=== PATIENT | male | born 1975 | race African-American/Black ===

== ENCOUNTER 2018-10-31 10:48 | Emergency (ER) | payer MEDICARE, MEDICAID ==
[2018-10-31] MEDS ORDERED: CLINDAMYCIN HCL 150 MG CAPSULE PO ONE (11:14)
[2018-10-31] MEDS ORDERED: HYDROCODONE/ACETAMINOPHEN 5-325 MG TABLET PO ONE (11:14)
--- NOTE | 2018-10-31 11:52 | RADIOLOGY REPORT (SQ) ---
EXAM DESCRIPTION: FINGER LEFT COMPLETED DATE/TIME: 10/31/2018 11:40 am REASON FOR STUDY: fall, L thumb injury COMPARISON: None. NUMBER OF VIEWS: Three views. TECHNIQUE: AP, lateral, and oblique images acquired of the left thumb. LIMITATIONS: None. FINDINGS: MINERALIZATION: Normal. BONES: Comminuted acute fracture base left thumb proximal phalanx with extension of fracture lines in to the 1st MCP joint. Mild dorsal angulation at the fracture site. SOFT TISSUES: No soft tissue swelling. No foreign body. OTHER: No other significant finding. IMPRESSION: Comminuted acute fracture base left thumb proximal phalanx, with intra-articular extensi on of fracture lines into the 1st metacarpophalangeal joint TECHNICAL DOCUMENTATION: JOB ID: [id number] [email or web address]- All Rights Reserved Reading location - IP/workstation name: [email or web address]
--- NOTE | 2018-10-31 11:53 | RADIOLOGY REPORT (SQ) ---
EXAM DESCRIPTION: HIP RIGHT AP/LATERAL COMPLETED DATE/TIME: 10/31/2018 11:40 am REASON FOR STUDY: fall, r hip pain COMPARISON: None. NUMBER OF VIEWS: Two views. TECHNIQUE: AP pelvis and additional frog-leg view of the right hip. LIMITATIONS: None. FINDINGS: MINERALIZATION: Normal. RIGHT HIP: No fracture or dislocation. No worrisome bone lesions. LEFT HIP: No fracture or dislocation. No worrisome bone lesions. PUBIS AND ISCHIUM: No fracture. PELVIS: No fracture. SACRUM: No fracture or dislocation. No worrisome bone lesions. LOWER LUMBAR SPINE: No fracture or dislocation. No worrisome bone lesions. No significant disc disea se. SOFT TISSUES: No findings. OTHER: No other significant finding. IMPRESSION: NEGATIVE STUDY OF THE RIGHT HIP. NO RADIOGRAPHIC EVIDENCE OF ACUTE INJURY. TECHNICAL DOCUMENTATION: JOB ID: [id number] [employer]- All Rights Reserved Reading location - IP/workstation name: [email or web address]
--- NOTE | 2018-10-31 12:12 | ER Document Report ---
HPI - HPI Patient complains to provider of: fall Time Seen by Provider: 10/31/18 11:05 Onset: Yesterday Onset/Duration: Sudden Quality of pain: Achy Pain Level: 3 Context: Patient states that he fell stepping down out of a camper yesterday onto his left hand. Patient complains of right hip pain as well. Patient denies any head injury or loss of consciousness. Recent with left thumb pain and swelling Associated Symptoms: Other - Right hip, left thumb pain. denies: Fever, Headache Exacerbated by: Movement, Walking Relieved by: Denies Similar symptoms previously: No Recently seen / treated by doctor: No - ROS ROS below otherwise negative: Yes Systems Reviewed and Negative: Yes All other systems reviewed and negative - CONSTITUTIONAL Constitutional: DENIES: Fever - NEURO Neurology: DENIES: Weakness - RESPIRATORY Respiratory: DENIES: Trouble Breathing, Coughing - GASTROINTESTINAL Gastrointestinal: DENIES: Nausea, Patient vomiting - MUSCULOSKELETAL Musculoskeletal: REPORTS: Extremity pain - left thumb, right hip. DENIES: Back Pain, Neck Pain - DERM Skin Color: Erythema Skin Problems: None Past Medical History - General Information source: Patient - Social History Smoking Status: Current Every Day Smoker Frequency of alcohol use: None Drug Abuse: None Lives with: Friend Family History: Reviewed & Not Pertinent Patient has suicidal ideation: No Patient has homicidal ideation: No Renal/ Medical History: Denies: Hx Peritoneal Dialysis Infectious Medical History: Reports: Hx HIV Surgical Hx: Negative - Immunizations Hx Diphtheria, Pertussis, Tetanus Vaccination: Yes Vertical Provider Document - CONSTITUTIONAL Agree With Documented VS: Yes Exam Limitations: No Limitations General Appearance: WD/WN, No Apparent Distress - INFECTION CONTROL TRAVEL OUTSIDE OF THE [place] IN LAST 30 DAYS: No - HEENT HEENT: Atraumatic, Normocephalic - NECK Neck: Normal Inspection, Supple - RESPIRATORY Respiratory: Breath Sounds Normal, No Respiratory Distress - CARDIOVASCULAR Cardiovascular: Regular Rate, Regular Rhythm - BACK Back: Normal Inspection Notes: No spinal midline tenderness step-off or deformity - MUSCULOSKELETAL/EXTREMETIES Musculoskeletal/Extremeties: MAEW Notes: Patient with right lateral hip joint tenderness, no dislocation or deformity. Normal gait. Patient with left thumb tenderness to CMC joint and DIP joint, 2+ edema to thenar eminence, mild erythema overlying joint with small abrasions noted to hand. - NEURO Level of Consciousness: Awake, Alert, Appropriate Motor/Sensory: No Motor Deficit - DERM Integumentary: Warm, Dry Course - Re-evaluation Re-evalutation: 10/31/18 12:10 Pt with subtle erythema noted to hand, will cover in case of developing cellulitis in addition to acute fracture noted to left thumb. Erythema likely a result of ecchymosis to acute fracture. Good return precautions discussed. - Vital Signs Vital signs: Temp Pulse Resp BP Pulse Ox 98.5 F 84 18 148/97 H 98 10/31/18 10:53 10/31/18 10:53 10/31/18 10:53 10/31/18 10:53 10/31/18 10:53 - Diagnostic Test Radiology reviewed: Image reviewed, Reports reviewed Procedures - Immobilization Left Thumb Pre-Proc Neuro Vasc Exam: Normal Immobilizer type: Thumb spica Performed by: PCT Post-Proc Neuro Vasc Exam: Normal Alignment checked and good: Yes Discharge - Discharge Clinical Impression: Abrasion Fracture of thumb, left, closed Qualifiers: Encounter type: initial encounter Phalanx: unspecified phalanx Fracture alignment: displaced Qualified Code(s): S62.502A - Fracture of unspecified phalanx of left thumb, initial encounter for closed fracture Sprain of right hip Qualifiers: Encounter type: initial encounter Qualified Code(s): S73.101A - Unspecified sprain of right hip, initial encounter Condition: Stable Disposition: HOME, SELF-CARE Instructions: Clindamycin ([facility]), Oral Narcotic Medication ([facility]), Splint Precautions ([facility]), Sprain ([facility]), Fractured Thumb ([facility]) Additional Instructions: Return immediately for any new or worsening symptoms Followup with your primary care provider, call tomorrow to make a followup appointment Follow-up with orthopedics for further evaluation, call today to make an appointment. Prescriptions: Clindamycin HCl [Cleocin Hcl] 300 mg PO QID #28 capsule Hydrocodone/Acetaminophen [Burket 5-325 mg Tablet] 1 tab PO Q6 PRN #15 tablet PRN Reason: Forms: Smoking Cessation Education Referrals: FELIBERTO DAVALOS DO [ACTIVE STAFF] - 11/03/18
[2018-10-31 12:52] VITALS: BP 139/92
== END 2018-10-31 12:52 | disposition home or self-care (01) ==
LOC: ER 10:48
PROC: 2W3HX1Z Immobilization of Left Thumb using Splint (ICD-10-PCS; principal; 2018-10-31)
DX: S62.502A Fracture of unspecified phalanx of left thumb, initial encounter for closed fracture (principal); S73.101A Unspecified sprain of right hip, initial encounter; M25.551 Pain in right hip; M79.645 Pain in left finger(s); W17.89XA Other fall from one level to another, initial encounter; F17.200 Nicotine dependence, unspecified, uncomplicated
CPT/HCPCS: 99283; 73140; 73502; 29130; A9270 ×2

== ENCOUNTER 2018-11-10 05:35 | Day surgery (SDC) | payer MEDICARE, MEDICAID ==
[2018-11-10] MEDS ORDERED: PROPOFOL INJ 200 MG/20 ML VIAL IV ONE (06:15)
[2018-11-10] MEDS ORDERED: FENTANYL CITRATE INJ/PF 100 MCG/2 ML AMPUL ONE (06:15)
[2018-11-10] MEDS ORDERED: MIDAZOLAM 2 MG/2 ML INJ ONE (06:15)
[2018-11-10] MEDS ORDERED: ONDANSETRON HCL INJ/PF 4 MG/2 ML SDV ONE (06:15)
[2018-11-10] MEDS ORDERED: DEXAMETHASONE SOD PHOSPHATE INJ 4 MG/1 ML VIAL ONE (06:15)
[2018-11-10] MEDS ORDERED: LIDOCAINE 0.5% INJ-PF (5 MG/ML) 50 ML SDV ONE (06:16)
[2018-11-10 06:29] LABS: HEMATOCRIT 43.3 % (37.9-51.0); HEMOGLOBIN 14.9 g/dL (13.5-17.0); MEAN CORPUSCULAR HEMOGLOBIN 30.1 pg (27.0-33.4); MEAN CORPUSCULAR HGB CONC 34.3 g/dL (32.0-36.0); MEAN CORPUSCULAR VOLUME 88 fl (80-97); PLATELET COUNT 247 10^3/uL (150-450); RED BLOOD COUNT 4.93 10^6/uL (4.35-5.55); RED CELL DISTRIBUTION WIDTH 15.3 % (11.5-14.0); WHITE BLOOD COUNT 4.1 10^3/uL (4.0-10.5)
[2018-11-10 06:40] LABS: ANION GAP 9 (5-19); BLOOD UREA NITROGEN 10 mg/dL (7-20); CALCIUM 9.3 mg/dL (8.4-10.2); CARBON DIOXIDE 27 mmol/L (22-30); CHLORIDE 102 mmol/L (98-107); GLUCOSE 79 mg/dL (75-110); SODIUM 138.3 mmol/L (137-145)
[2018-11-10] MEDS ORDERED: CEFAZOLIN 2 GM/D5W RTU 2 GM/50 ML RTUPB IV ONE (06:46)
--- NOTE | 2018-11-10 07:25 | RADIOLOGY REPORT (SQ) ---
EXAM DESCRIPTION: XR CHEST 1 VIEW COMPLETED DATE/TME: 11/10/2018 00:00 CLINICAL HISTORY: 43 years Male, surgery COMPARISON: None. NUMBER OF VIEWS/TECHNIQUE: 1/AP FINDINGS: Increased lung volume, clear parenchyma, normal cardiac silhouette, and intact bony thorax. IMPRESSION: No acute cardiopulmonary findings.
[2018-11-10] MEDS ORDERED: ONDANSETRON HCL INJ/PF 4 MG/2 ML SDV IV PRN ×2 (07:39→08:05)
[2018-11-10] MEDS ORDERED: FENTANYL CITRATE INJ/PF 100 MCG/2 ML AMPUL IV PRN ×3 (07:39)
[2018-11-10] MEDS ORDERED: MORPHINE SULFATE 10 MG/ML INJ IV PRN ×2 (07:39→08:05)
[2018-11-10] MEDS ORDERED: PROMETHAZINE HCL INJ 25 MG/1 ML VIAL IV PRN ×2 (07:39)
[2018-11-10] MEDS ORDERED: DIPHENHYDRAMINE HCL 50 MG/ML VIAL IV PRN (07:39)
[2018-11-10] MEDS ORDERED: MEPERIDINE HCL/PF INJ 25 MG/1 ML DISP.SYRIN IV PRN (07:39)
[2018-11-10] MEDS ORDERED: BUPIVACAINE HCL 0.5 % INJ/PF 30 ML SDV ONE (07:46)
[2018-11-10] MEDS ORDERED: OXYCODONE-ACETAMINOPHEN 5-325 MG TABLET PO PRN (08:05)
--- NOTE | 2018-11-10 08:10 | Operative Report ---
Operative Report DATE OF SURGERY: 11/10/18 PREOPERATIVE DIAGNOSIS: Left thumb intra-articular proximal phalanx fracture POSTOPERATIVE DIAGNOSIS: Same OPERATION: Closed reduction percutaneous pinning left thumb intra-articular proximal phalanx fracture. SURGEON: FELIBERTO DAVALOS ANESTHESIA: GA COMPLICATIONS: None ESTIMATED BLOOD LOSS: minimal PROCEDURE: Indication for above procedure: 43-year-old male who sustained a fall onto his left thumb. Patient was seen in the emergency room x-rays demonstrate intra-articular thumb proximal phalanx fr acture. Original alignment was within acceptable position however upon follow- up patient was placed in a cast and x-rays demonstrate displacement of the intra-articular fragment at that point decision was made to proceed with operative intervention. Procedure In Detail: Patient was seen and evaluated in the preoperative holding area. The LEFT upper extremity was initialized and marked. Patient received 2g of Ancef IV for bacterial prophylaxis. Patient was taken back to the operative room where transferred to the operative table and placed under general anesthesia. Once they were adequately anesthetized a nonsterile tourniquet was placed on the upper extremity. A surgical team debriefing was performed ensuring all instrumentation was available, the surgical procedure was discussed with possible concerns reviewed. The upper extremity was prepped with chlorhexidine and alcohol and draped in a sterile fashion. A timeout was done identifying correct patient, procedure and extremity everyone in attendance agree with this and verbalized no concerns. The extremity was exsanguinated the tourniquet was inflated to 250 mmHg. With a 0.062 K wire osteoclasis was performed and the dorsal radial intra- articular fragment was reduced. A 0.035 K wire was then placed crossing the fracture site obtaining fixation into the far cortex. This K wire was then cut in half in the office and placed once again to the articular fragment obtaining further fixation. Lastly a third and final 0.035 K wire was placed obtaining further fixation into the fragment. Under C-arm fluoroscopy fragment remained reduced. With flexion extension and ulnar deviation there is no evidence of fracture or instability. K wires were then cut and left outside the skin. 20 cc of 0.5% bupivacaine without epinephrine was injected for postoperative pain control. Tourniquet was deflated. Patient good peripheral perfusion. Patient was placed in a thumb spica splint. Sponge counts, instrument counts, needle counts were correct. Patient was then awoken from anesthesia. Transferred from the operating room table to the operating room stretcher. There was no intraoperative complications patient tolerated procedure well stable to PACU. Postop plan: Patient follow-up the office in 2 weeks at which point we will obtain radiographs and transition to a thumb spica cast.
--- NOTE | 2018-11-10 08:12 | Discharge Summary ---
Discharge Summary (SDC) - Discharge Final Diagnosis: Left thumb phalanx fracture Date of Surgery: 11/10/18 Discharge Date: 11/10/18 Condition: Good Treatment or Instructions: Schedule Follow Up w/ Dr. Devyn Mosley @ [facility] for Surgery to be seen in 10-14 days or as scheduled [place]: [place]: [place]: Ice and elevate Keep splint clean/dry/intact, do not remove. If your fingers become numb please unwrap the Anil wrap but leave the splint in place, if the sensation does not return within 30 minutes please return to the emergency department. May begin finger range of motion attempting to make full fist. Please use ibuprofen (Motrin or Advil) 600-800 mg every 8 hours as needed for pain or fever DO NOT TAKE w/ TORADOL may use once TORADOL complete. You may also use acetaminophen (Tylenol) 1000 mg every 4-6 hours as needed for pain or fever. Please be aware that many medications contain acetaminophen, do not exceed a total of 1000 mg of acetaminophen every 6 hours. If ibuprofen and acetaminophen are not sufficient for your pain you may take the Percocet/[place]. Please be aware that the Percocet/[place] does contain Tylenol. Stool softener of choice when on pain medication. USE OF [id number] IBUPROFEN: Ibuprofen (Advil, Nuprin, Medipren, Motrin IB) is a medication for fever and pain control. In addition, it has anti- inflammatory effects which may be beneficial, especially in the treatment of injuries. It's best to take ibuprofen with food. Persons with ulcer disease or allergy to aspirin should notify their physician of this before taking ibuprofen. Ibuprofen can be given every four to six hours, for a total of four doses daily. Age Pain or fever dose Antiinflammatory dose 6-8 yr 200 mg (1 tab) 200 mg (1 tab) 9-11 yr 200 mg (1 tab) 200-400 mg (1-2 tab) 11-14 yr 200-400 mg (1-2 tab) 400 mg (2 tab) 15-adult 400 mg (2 tab) 600 mg (3 tab) ORAL NARCOTIC MEDICATION: You have been given a prescription for pain control. This medication is a narcotic. It's best taken with food, as nausea can result if taken on an empty stomach. Don't operate machinery or drive within six hours of taking this medication. Do not combine this medicine with alcohol, or with any medication which can cause sedation (such as cold tablets or sleeping pills) unless you get permission from the physician. Narcotics tend to cause constipation. If possible, drink plenty of fluids and eat a diet high in fiber and fruits. Please be aware that prescription narcotics also have the potential for abuse. People become addicted to these medications because of the general sense of wellbeing that they induce. This feeling along with a significant reduction in tension, anxiety, and aggression provides a stimulating seductive quality to these drugs. Once your pain is under control, we encourage you to discard your unused narcotics. Prescriptions: Oxycodone HCl/Acetaminophen [Percocet 5-325 mg Tablet] 1 tab PO Q6 #25 tab Discharge Diet: As Tolerated Respiratory Treatments at Home: Deep Breathing/Coughing Discharge Activity: No Lifting Over 10 Pounds, No Lifting/Push/Pulling Report the Following to Your Physician Immediately: Fever over 101 Degrees, Unusual Bleeding, Redness, Swelling, Warmth, Increased Soreness
--- NOTE | 2018-11-10 08:47 | EKG REPORT ---
SEVERITY:- ABNORMAL ECG - SINUS RHYTHM PROBABLE LEFT ATRIAL ABNORMALITY LEFT VENTRICULAR HYPERTROPHY ST ELEV, PROBABLE NORMAL EARLY REPOL PATTERN : Confirmed by: Vikash Powell 10-Nov-2018 08:46:40
[2018-11-10] MEDS ORDERED: OXYCODONE-ACETAMINOPHEN 5-325 MG TABLET ONE (09:00)
[2018-11-10 10:27] VITALS: BP 144/94
--- NOTE | 2018-11-10 11:36 | RADIOLOGY REPORT (SQ) ---
EXAM DESCRIPTION: NO CHG FLUORO; FINGER LEFT COMPLETED DATE/TIME: 11/10/2018 8:50 am REASON FOR STUDY: PERC PINNING LEFT THUMB ASST WITH FLUORO IN OR; CLOSED REDUCTION /PERC PINNING LEF T THUMB ASST WITH FLUORO IN OR S62.502A FRACTURE OF UNSP PHALANX OF LEFT THUMB, INIT FOR CL COMPARISON: None. FLUOROSCOPY TIME: 34 seconds 4 images saved to PACS. TECHNIQUE: Intra-operative images acquired during surgical procedure to evaluate progress. NUMBER OF IMAGES: 4 LIMITATIONS: None. FINDINGS: Orthopedic pin fixation of fracture base of proximal 1st phalanx. Alignment is anatomic. IMPRESSION: IMAGE(S) OBTAINED DURING PROCEDURE. COMMENT: Quality ID [id number]: Final reports for procedures using fluoroscopy that document radiation exp osure indices, or exposure time and number of fluorographic images (if radiation exposure indices are not available) Please consult full operative report of the attending physician for description of the procedure. TECHNICAL DOCUMENTATION: JOB ID: [id number] [employer]- All Rights Reserved Reading location - IP/workstation name: [email or web address]
--- NOTE | 2018-11-10 11:36 | RADIOLOGY REPORT (SQ) ---
EXAM DESCRIPTION: NO CHG FLUORO; FINGER LEFT COMPLETED DATE/TIME: 11/10/2018 8:50 am REASON FOR STUDY: PERC PINNING LEFT THUMB ASST WITH FLUORO IN OR; CLOSED REDUCTION /PERC PINNING LEF T THUMB ASST WITH FLUORO IN OR S62.502A FRACTURE OF UNSP PHALANX OF LEFT THUMB, INIT FOR CL COMPARISON: None. FLUOROSCOPY TIME: 34 seconds 4 images saved to PACS. TECHNIQUE: Intra-operative images acquired during surgical procedure to evaluate progress. NUMBER OF IMAGES: 4 LIMITATIONS: None. FINDINGS: Orthopedic pin fixation of fracture base of proximal 1st phalanx. Alignment is anatomic. IMPRESSION: IMAGE(S) OBTAINED DURING PROCEDURE. COMMENT: Quality ID [id number]: Final reports for procedures using fluoroscopy that document radiation exp osure indices, or exposure time and number of fluorographic images (if radiation exposure indices are not available) Please consult full operative report of the attending physician for description of the procedure. TECHNICAL DOCUMENTATION: JOB ID: [id number] [employer]- All Rights Reserved Reading location - IP/workstation name: [email or web address]
== END 2018-11-10 09:50 | disposition home or self-care (01) ==
LOC: OROUT 05:35
PROVIDERS: ATTEND Orthopaedic Surgery
DX: S62.512A Displaced fracture of proximal phalanx of left thumb, initial encounter for closed fracture (principal); W19.XXXA Unspecified fall, initial encounter; I10 Essential (primary) hypertension; Z21 Asymptomatic human immunodeficiency virus [HIV] infection status; Z79.899 Other long term (current) drug therapy; E07.9 Disorder of thyroid, unspecified
CPT/HCPCS: 36415; 85027; 80048; 71045; 73140; 93005; 93010; 26727; C1713 ×2; J2250; J3490 ×2; J1100; J3010; A9270; J2405; J2704; J0690; 01820

== ENCOUNTER 2019-05-12 21:42 | Emergency (ER) | payer MEDICARE, MEDICAID ==
[2019-05-12 22:00] VITALS: BP 150/104
[2019-05-12] MEDS ORDERED: DIPH/PERTUSS(ACELL)/TETANUS VAC/PF 0.5 ML SYR (>=10YO) IM ONE (22:07)
--- NOTE | 2019-05-12 22:09 | ER Document Report ---
ED Medical Screen (RME) - General Chief Complaint: Dog Bite Stated Complaint: DOG BITE Time Seen by Provider: 05/12/19 22:01 Mode of Arrival: Ambulatory Information source: Patient Notes: Patient presents to the emergency department with dog bite to the left side of his face. Patient reports he was walking back from the store when a pit bull attacked him. Unsure when last tetanus is. Patient has history of high blood pressure and is HIV positive. Reports he was allergic to penicillin when he was younger but not allergic now. Patient complains of pain to his left ear left side of his face. Multiple bite san noted. No active bleeding dried blood noted. Patient reports the dog did have a collar on. Animal control has not been notified. I have greeted and performed a rapid initial assessment of this patient. A comprehensive ED assessment and evaluation of the patient, analysis of test results and completion of the medical decision making process will be conducted by additional ED providers. Dictation of this chart was performed using voice recognition software; therefore, there may be some unintended grammatical errors. TRAVEL OUTSIDE OF THE [place] IN LAST 30 DAYS: No - Related Data Allergies/Adverse Reactions: Penicillins Allergy (Verified 05/12/19 21:46) Past Medical History - Past Medical History Cardiac Medical History: Reports: Hx Hypertension Denies: Hx Heart Attack Pulmonary Medical History: Denies: Hx Asthma, Hx Bronchitis, Hx COPD, Hx Pneumonia Neurological Medical History: Denies: Hx Cerebrovascular Accident, Hx Seizures Renal/ Medical History: Denies: Hx Peritoneal Dialysis Musculoskeltal Medical History: Denies Hx Arthritis Infectious Medical History: Reports: Hx HIV - Immunizations Hx Diphtheria, Pertussis, Tetanus Vaccination: Yes Physical Exam - Vital signs Vitals: Temp Pulse Resp BP Pulse Ox 97.3 F 74 18 150/104 H 99 05/12/19 21:58 05/12/19 21:58 05/12/19 21:58 05/12/19 21:58 05/12/19 21:58 Course - Vital Signs Vital signs: Temp Pulse Resp BP Pulse Ox 97.3 F 74 18 150/104 H 99 05/12/19 21:58 05/12/19 21:58 05/12/19 21:58 05/12/19 21:58 05/12/19 21:58
[2019-05-12] MEDS ORDERED: ACETAMINOPHEN 325 MG TABLET PO ONE (22:56)
--- NOTE | 2019-05-12 22:58 | ER Document Report ---
HPI - HPI Patient complains to provider of: dog bite to left cheek Time Seen by Provider: 05/12/19 22:01 Onset: Just prior to arrival Onset/Duration: Sudden Quality of pain: Achy Severity: Moderate Pain Level: 3 Context: 44 yr old male with a hx of hiv who states he is complaint with his HAART [id number] by sydney QUINTERO, and who has a viral load that is undetectable and a good cd4 count per pt; however, he isn't able to tell me exact numbers, who today is here for an accidental dog bite to his left cheek that happened user acceptance tester. states the dog was a brown pitbull and likely his neighbors. states he was walking down the road and did nothing to provoke it and it just out of the blue came and attacked him. he states he punched the dog in the face a few times to get it off him. no bites any where else. last tdap >5 yrs ago. no neck pain. no trouble breathing, swallowing, or handling secretions. no abd pain. pt doesn't want prophylactic rabies tx as he apparently knows who the dog belongs too and plans to stay in contact with animal control to insure resolution. animal control form faxed per charge nurse. per pt, dog was o therwise acting his baseline and can be caught and quarantined. no salivation. no other aggressive behavior or similar behavior around the same time to suggest rabies. no other known attacks or victims. no hx of diabetes or asthma. hasn't sought care until now. no recent abx or steroids. pt able to talk. no intoxication. no blood thinners. no broken teeth. no fevers, drainage, bleeding. streaking, induration, or fluctuation. no acute blood loss sx. no trismus. no other complaints at this time. Exacerbated by: Movement Relieved by: Remaining still Similar symptoms previously: No Recently seen / treated by doctor: No - ROS Systems Reviewed and Negative: Yes All other systems reviewed and negative - to include 10 systems, unless mentioned in the hpi Past Medical History - General Information source: Patient - Social History Smoking Status: Current Every Day Smoker Frequency of alcohol use: Social Drug Abuse: None Lives with: Family Family History: Reviewed & Not Pertinent Patient has suicidal ideation: No Patient has homicidal ideation: No - Past Medical History Cardiac Medical History: Reports: Hx Hypertension Denies: Hx Heart Attack Pulmonary Medical History: Denies: Hx Asthma, Hx Bronchitis, Hx COPD, Hx Pneumonia Neurological Medical History: Denies: Hx Cerebrovascular Accident, Hx Seizures Endocrine Medical History: Denies: Hx Diabetes Mellitus Type 1, Hx Diabetes Mellitus Type 2, Hx Hypothyroidism Renal/ Medical History: Denies: Hx Peritoneal Dialysis Musculoskeletal Medical History: Denies Hx Arthritis Infectious Medical History: Reports: Hx HIV - Immunizations Immunizations up to date: Yes Hx Diphtheria, Pertussis, Tetanus Vaccination: Yes Vertical Provider Document - CONSTITUTIONAL Agree With Documented VS: Yes Exam Limitations: No Limitations General Appearance: No Apparent Distress Notes: GENERAL_APPEARANCE: well_nourished, alert, cooperative, mild obvious discomfort. Pleasant, thin middle aged black male, smiling, speaking in full sentences, in no sign of resp distress, easily sitting up. appears uncomfortable when you palpate his left cheek region where he has the dog bite, otherwise non toxic. VITALS: reviewed, see vital signs table. HEAD: there are a few small superficial scratches and assembler camper wounds to the left maxilla region and left anterior ear/tragus region with some dried blood that was cleaned up. nothing though and through. no active bleeding, drainage, pulsatile flow, induration or streaking. nothing amenable to suture repair. no grossly visible or palpable fb. otherwise normocephalic and atraumatic, no raccoon eyes, no moreno signs. no swelling or ttp. EARS: canals_clear_bilat, TMs_clear, no_discharge_from_ears. no hemotympanum EYES: EOMI without pain, conjunctiva_clear. PERRL, eyelids wnl. no drainage. no ttp or crepitation of the orbits. no sign of orbital/periorbital cellulitis. no hyphema. MOUTH: no_lacerations inside_mouth. no broken teeth. no trismus. no tmj clicking or ttp. pharynx wnl. tongue protrudes midline. no drooling, tripoding, voice change, or stridor, no thrush or oral lesions. no tongue or lip swelling. NOSE: no drainage or epistaxis NECK: no_swelling\tenderness on the neck. no midline bony tenderness. no step offs or deformities. full rom. full strength. no meningeal signs. no sign of ce ntral cord syndrome. HEART: normal_rate, normal_rhythm, LUNGS: ctab. no chest wall ttp. no overlying skin changes. no flail chest or crepitation. ABDOMEN: normal_BS, soft, no_abd_tenderness, no rebound, guarding, distension, or peritoneal signs. no cva ttp. no overlying skin changes. BACK: no midline bony tenderness. no step offs or deformities RECTAL: deferred, however, no sign of loss of bowel or bladder or soiling of clothing. EXTREMITIES: strength 5/5 in all_extremities, good pulses all_extremities, no_abrasions\lacerations in the extremities, no_swelling\tenderness in the extre mities. full rom. normal gait. good hand cabinet installer. brisk cap refill. no shortening or rotation of the limbs or other signs of deformities unless otherwise noted. SKIN: warm, dry, good_color. no other grossly visible overlying skin changes or signs of trauma unless otherwise noted. NEURO: cranial nerves 2 - 12 intact, motor_intact, sensory_intact. cerebellar function intact GLASCOW_COMA_SCORE: (adult) - eyes_open_spontaneously_4, verbal_converses_and_oriented_5, motor_obeys_commands_6, glasgow_coma_total_15, MENTAL_STATUS: speech_clear, oriented_X_3, responds_appropriately to questions. - INFECTION CONTROL TRAVEL OUTSIDE OF THE [place] IN LAST 30 DAYS: No Course - Re-evaluation Re-evalutation: 05/13/19 12:55 pt here for a few small superficial dog bite puncture wounds and scratches to his left cheek that happened user acceptance tester. nothing through and through. nothing amenable to suture repair. no active bleeding, drainage, or grossly visible/palpable fb. area ttp with some mild swelling, secondary to this and his hiv status i did get basic labs after discussing the case with dr peace, ed attending, and also a head/face ct. all of these were neg other than some soft tissue swelling per rad and reviewed by myself. pt informed of his findings. his tdap was updated. he states he can get up with animal control to quarantine the dog to find out its rabies status. animal control form has already been faxed per nursing here. he responded well to meds listed and is requesting to go home. he doesn't want rabies prophylaxis. his wounds were cleansed and dressed here via nursing. he is pcn allergic so according to utd will dc with clinda and bactrim. advised sx care. advised wound care. will write him for a few vicodin. no driving, working, operating machines or taking tylenol with them. cool compresses to the area. advised to have a low threshold for any worsening sx and to return here for it if he does as he may require iv abx to insure resolution of his sx. advised to f/u with pcp in 1-2 days. return for any worsening symptoms. vss. well appearing. satting well on ra. neurononfocal. pt understands and agrees to plan. On reexam, pt improved with tx listed. remained stable. nontoxic. well appearing. pain controlled. tolerating po. requesting to go home. case discussed with ER Attending, Dr. peace, who directed and agrees with plan of care and advised no further workup indicated at this time and pt is stable for dc home with close f/u with pcp/specialist. Documentation achieved through voice recording which may lead to some occasional accidental typographical errors. Extensive efforts have been made to proof read documentation to make sure these are the least as possible. [place], he has only gotten a few scripts of narcotics sporadically in December 2018 and prior to that. none since Category Date Time Status Doctor [DOCTOR/NURSE COMMUNICATION] [RC] NOW Care 05/12/19 22:07 Active Dressing/Wound Care (ED) NOW Care 05/12/19 22:07 Active Vital Signs (ED) STAT Care 05/13/19 00:[address] FACIAL AREA WITHOUT [CT] Stat Exams 05/12/19 22:[address] HEAD WITHOUT [CT] Stat Exams 05/12/19 22:57 Completed CBC WITH DIFF [HEME] Stat Lab 05/12/19 23:00 Completed CMP [COMPREHENSIVE METABOLIC PANEL] [CHEM] Stat Lab 05/12/19 23:00 Completed Acetaminophen [Tylenol 325 mg Tablet] Med 05/12/19 22:56 Discontinued 975 mg PO NOW ONE Clindamycin HCl [Cleocin 150 mg Capsule] Med 05/13/19 00:50 Discontinued 450 mg PO NOW ONE Diph,Pertuss(Acell),Tet Vac/Pf [Boostrix Vaccine 0.5 ml Med 05/12/19 22:07 Discontinued Syringe] 0.5 ml IM NOW ONE Neomy Sulf/Bacitrac Zn/Poly [Neosporin Ointment 15 gm] Med 05/13/19 00:48 Discontinued 1 applic TP NOW ONE Sulfamethoxazole/Trimethoprim [Septra-Ds 800-160 mg Med 05/13/19 00:50 Discontinued Tablet] 1 tab PO NOW ONE - Vital Signs Vital signs: Temp Pulse Resp BP Pulse Ox 97.3 F 74 18 150/104 H 99 05/12/19 21:58 05/12/19 21:58 05/12/19 21:58 05/12/19 21:58 05/12/19 21:58 05/13/19 13:08 Temp Pulse Resp BP Pulse Ox 05/12/19 21:58 97.3 F 74 18 150/104 H 99 - Laboratory Result Diagrams: 05/12/19 23:00 05/12/19 23:00 Laboratory results interpreted by me: 05/13/19 13:08 Labs- Entire Visit 05/12/19 05/12/19 23:00 23:00 WBC 5.2 RBC 5.04 Hgb 14.9 Hct 44.4 MCV 88 MCH 29.6 MCHC 33.5 RDW 14.7 H Plt Count 220 Lymph % (Auto) 46.3 H [place] % (Auto) 12.3 Eos % (Auto) 2.2 Baso % (Auto) 1.3 Absolute Neuts (auto) 2.0 Absolute Lymphs (auto) 2.4 Absolute Monos (auto) 0.6 Absolute Eos (auto) 0.1 Absolute Basos (auto) 0.1 Seg Neutrophils % 37.9 L Sodium 140.6 Potassium 4.0 Chloride 100 Carbon Dioxide 30 Anion Gap 11 BUN 9 Creatinine 1.14 Est GFR ( Amer) > 60 Est GFR (MDRD) Non-Af > 60 Glucose 79 Calcium 9.7 Total Bilirubin 0.4 Direct Bilirubin 0.2 Neonat Total Bilirubin Not Reportable Neonat Direct Bilirubin Not Reportable Neonat Indirect Bili Not Reportable AST 42 ALT 23 Alkaline Phosphatase 53 Total Protein 8.4 H Albumin 4.7 - Diagnostic Test Radiology reviewed: Image reviewed, Reports reviewed Radiology results interpreted by me: 05/13/19 13:[address] 05/12/19 22:56 IMPRESSION: No acute intracranial findings. Official left facial soft tissue injury without abscess. Head CT 05/12/19 22:57 IMPRESSION: No acute intracranial findings. Official left facial soft tissue injury without abscess. Discharge - Discharge Clinical Impression: Need for Tdap vaccination Bite from dog Qualifiers: Encounter type: initial encounter Qualified Code(s): W54.0XXA - Bitten by dog, initial encounter Condition: Stable Disposition: HOME, SELF-CARE Instructions: Animal Bites ([facility]) Additional Instructions: Follow-up with PCP in 1 to 2 days. Return for any worsening symptoms. Do not drive, take Tylenol, operate machinery, or work while taking the Vicodin. Take the medication as prescribed. Cool compresses to the area. You need to exercise vigilant wound care. Clean areas with warm soapy water. Neosporin to the area. Have a low threshold for any signs of infection and return here as you may require IV antibiotics due to the nature of your injury. take the antibiotics with food and to completion Prescriptions: Sulfamethoxazole/Trimethoprim [Bactrim Ds Tablet] 1 each PO BID #14 tablet Clindamycin HCl [Cleocin 150 mg Capsule] 450 mg PO Q8 7 Days #63 capsule Hydrocodone/Acetaminophen [[place] 5-325 mg Tablet] 1 tab PO Q6 PRN #12 tablet PRN Reason: For Pain
[2019-05-12 23:17] LABS: ABSOLUTE BASOPHILS # (AUTO) 0.1 10^3/uL (0.0-0.2); ABSOLUTE EOSINOPHILS # (AUTO) 0.1 10^3/uL (0.0-0.6); ABSOLUTE LYMPHOCYTES (AUTO) 2.4 10^3/uL (0.5-4.7); ABSOLUTE MONOCYTES (AUTO) 0.6 10^3/uL (0.1-1.4); BASOPHILS % (AUTO) 1.3 % (0-2); EOSINOPHILS % (AUTO) 2.2 % (0-6); HEMATOCRIT 44.4 % (37.9-51.0); HEMOGLOBIN 14.9 g/dL (13.5-17.0); LYMPHOCYTES % (AUTO) 46.3 % (13-45); MEAN CORPUSCULAR HEMOGLOBIN 29.6 pg (27.0-33.4); MEAN CORPUSCULAR HGB CONC 33.5 g/dL (32.0-36.0); MEAN CORPUSCULAR VOLUME 88 fl (80-97); MONOCYTES % (AUTO) 12.3 % (3-13); PLATELET COUNT 220 10^3/uL (150-450); RED BLOOD COUNT 5.04 10^6/uL (4.35-5.55); RED CELL DISTRIBUTION WIDTH 14.7 % (11.5-14.0); SEGMENTED NEUTROPHILS % (AUTO) 37.9 % (42-78); TOTAL CELLS COUNTED % (AUTO) 100 %; WHITE BLOOD COUNT 5.2 10^3/uL (4.0-10.5)
[2019-05-12 23:25] LABS: ALBUMIN 4.7 g/dL (3.5-5.0); ALKALINE PHOSPHATASE 53 U/L (38-126); ANION GAP 11 (5-19); ASPARTATE AMINO TRANSFERASE 42 U/L (17-59); BILIRUBIN,DIRECT 0.2 mg/dL (0.0-0.4); BILIRUBIN,TOTAL 0.4 mg/dL (0.2-1.3); BLOOD UREA NITROGEN 9 mg/dL (7-20); CALCIUM 9.7 mg/dL (8.4-10.2); CARBON DIOXIDE 30 mmol/L (22-30); CHLORIDE 100 mmol/L (98-107); GLUCOSE 79 mg/dL (75-110); TOTAL PROTEIN 8.4 g/dL (6.3-8.2)
--- NOTE | 2019-05-13 00:07 | RADIOLOGY REPORT (SQ) ---
CLINICAL HISTORY: dog bite, left cheek and ear COMPARISON: None. TECHNIQUE: CT HEAD WITHOUT IV CONTRAST, CT MAXILLOFACIAL WITHOUT IV CONTRAST on 05/12/2019 10:57 PM CDT This exam was performed according to our departmental dose-optimization program, which includes automated exposure control, adjustment of the mA and/or kV according to patient size and/or use of iterative reconstruction technique. FINDINGS: There is no acute hemorrhage, mass effect or midline shift. Sethi-white differentiation is preserved. There is no hydrocephalus. There is no significant volume loss for age. There is soft tissue swelling involving the left cheek. There is a small superficial defect from the reported dog bite. There is no associated abscess. There is minimal subcutaneous air anterior to the right, possibly a second site of injury. The calvarium is intact. Orbits and globes are unremarkable. The paranasal sinuses are clear. Mastoid air cells are clear. IMPRESSION: No acute intracranial findings. Official left facial soft tissue injury without abscess.
[2019-05-13] MEDS ORDERED: NEOMY/BACITRAC ZN/POLY OINT 15 GM TP ONE (00:48)
[2019-05-13] MEDS ORDERED: SULFAMETHOXAZOLE/TRIMETHOPRIM 800-160 MG TABLET PO ONE (00:50)
[2019-05-13] MEDS ORDERED: CLINDAMYCIN HCL 150 MG CAPSULE PO ONE (00:50)
== END 2019-05-13 01:14 | disposition home or self-care (01) ==
LOC: ER 21:42
DX: S00.87XA Other superficial bite of other part of head, initial encounter (principal); S00.472A Other superficial bite of left ear, initial encounter; W54.0XXA Bitten by dog, initial encounter; Y93.A1 Activity, exercise machines primarily for cardiorespiratory conditioning; Y92.410 Unspecified street and highway as the place of occurrence of the external cause; F17.200 Nicotine dependence, unspecified, uncomplicated; I10 Essential (primary) hypertension; Z23 Encounter for immunization; Z21 Asymptomatic human immunodeficiency virus [HIV] infection status; Z79.899 Other long term (current) drug therapy
CPT/HCPCS: 36415; 85025; 80053; 70450; 70486; 90715; A9270 ×3; 90471; 99283; J3490